=== PATIENT | male | born 1965 | race Caucasian/White ===

== ENCOUNTER 2017-09-24 12:44 | Day surgery (SDC) | payer MEDICARE, MEDICAID ==
[~2017-09-24] VITALS: Ht 160 cm; Wt 57.7 kg
[~2017-09-24 12:44] MED LIST: FERR325T28 PO; GUAI-790 PO; LEVO175T2 PO; OXCA300T4 PO; POTA20LI PO; RABE20TA25 PO; ZOF4T PO
[2017-09-24 13:00] VITALS: BP 127/81
[2017-09-24] MEDS ORDERED: ONDA4TAB9 PO (13:11)
[2017-09-24] MEDS ORDERED: LACT-47 PO (13:11)
[2017-09-24] MEDS ORDERED: IBUP-2284 PO (13:11)
[2017-09-24] MEDS ORDERED: MIDAZolam 1mg/ml 10ml vial ONE (13:48)
[2017-09-24] MEDS ORDERED: LIDOcaine Viscous 15ml cup ONE (13:48)
[2017-09-24] MEDS ORDERED: fentaNYL/PF 50MCG/1 ML 2ML syringe ONE (13:48)
[2017-09-24 14:16] VITALS: BP 99/55
[2017-09-24 14:26] VITALS: BP 94/55
[2017-09-24 14:36] VITALS: BP 94/59
[2017-09-24 14:46] VITALS: BP 89/56
== END 2017-09-24 14:50 | disposition home or self-care (01) ==
LOC: GI LAB 12:44
PROVIDERS: ATTEND Internal Medicine Gastroenterology
DX: K22.2 Esophageal obstruction (principal); Q90.9 Down syndrome, unspecified; Z79.1 Long term (current) use of non-steroidal anti-inflammatories (NSAID); Z79.899 Other long term (current) drug therapy
CPT/HCPCS: 43248; G0500; J2250; J3010; J7030; A4620

== ENCOUNTER 2017-12-10 10:17 | Emergency (ER) | payer MEDICARE, MEDICAID ==
[~2017-12-10] VITALS: Ht 160 cm; Wt 77.0 kg
[~2017-12-10 10:17] MED LIST changes: +GUAI600T45 PO; +IBUP100O19 PO; +IBUP100O20 PO; +LACT-47 PO; +ONDA4TAB6 PO; +ONDA4TAB9 PO; +PEG15DRO2 OP; -ZOF4T PO
[2017-12-10 11:08] LABS: BASOPHILS % (AUTO) 0 % (0-1); EOSINOPHILS # (AUTO) 0.1 X10'3 (0-0.9); EOSINOPHILS % (AUTO) 0.2 % (0-6); HEMATOCRIT 41.7 % (42.0-52.0); HEMOGLOBIN 14.4 g/dl (14.0-17.9); LYMPHOCYTES # (AUTO) 0.7 X10'3 (1.1-4.8); LYMPHOCYTES % (AUTO) 2.8 % (21-51); MEAN CORPUSCULAR HGB CONC 34.4 % (33.0-36.5); MEAN CORPUSCULAR VOLUME 92.9 FL (78-98); MEAN PLATELET VOLUME 7.3 FL (7.4-10.4); MONOCYTES # (AUTO) 0.9 X10'3 (0-0.9); MONOCYTES % (AUTO) 3.6 % (2-12); NEUTROPHILS # (AUTO) 23.2 X10'3 (1.8-7.7); NEUTROPHILS % (AUTO) 93.4 % (42-75); PLATELET COUNT 320 X10'3 (140-440); RED BLOOD COUNT 4.49 X10'6 (4.70-6.10); RED CELL DISTRIBUTION WIDTH 16.2 % (11.5-14.5); WHITE BLOOD COUNT 24.8 X10'3 (4.5-11.0)
[2017-12-10 11:25] LABS: ALANINE AMINOTRANSFERASE 34 U/L (12-78); ALBUMIN 3.1 G/DL (3.4-5.0); ALBUMIN/GLOBULIN RATIO 0.7 (1.1-1.5); ALKALINE PHOSPHATASE 59 IU/L (46-116); ANION GAP 9 (8-16); ASPARTATE AMINO TRANSFERASE 38 U/L (10-37); BILIRUBIN,TOTAL 0.5 MG/DL (0.1-1.0); BLOOD UREA NITROGEN 20 MG/DL (7-18); BUN/CREATININE RATIO 16.1 (5.4-32.0); CALCIUM 8.6 MG/DL (8.5-10.1); CHLORIDE 94 MMOL/L (99-107); CREATININE 1.24 MG/DL (0.60-1.10); GLUCOSE 102 MG/DL (70-104); POTASSIUM 4.4 MMOL/L (3.5-5.1); SODIUM 130 MMOL/L (135-145); TOTAL CARBON DIOXIDE 27.4 MMOL/L (24-32); TOTAL PROTEIN 7.5 G/DL (6.4-8.2); eGFR 61 ML/MIN
[2017-12-10 11:38] LABS: ANISOCYTOSIS 1+; PLATELET ESTIMATE NORMAL; TOTAL CELLS COUNTED 100
[2017-12-10] MEDS: normal saline 1000ML IV soln IVB ONE ×2 (14:15→15:01)
[2017-12-10 14:43] LABS: CLARITY,URINE CLEAR (Clear); COLOR,URINE YELLOW (Yellow); GLUCOSE, URINE NEGATIVE (Neg); KETONES,URINE NEGATIVE (Neg); LEUKOCYTE ESTERASE ,URINE NEGATIVE (Neg); NITRITES, URINE NEGATIVE (Neg); OCCULT BLOOD,URINE NEGATIVE (Neg); PH,URINE 5.5 (4.8-8.0); PROTEIN,URINE TRACE mg/dl (Neg); UROBILINOGEN,URINE 0.2 E.U/dL (0.2-1.0)
[2017-12-10 14:52] LABS: UA COLLECTION TYPE CLN CATCH MIDSTREAM
[2017-12-10 14:56] LABS: LIPASE 72 U/L (73-393)
[2017-12-10 15:01] LABS: BACTERIA,URINE NONE SEEN /HPF (Neg); RBC,URINE NONE SEEN /HPF (0-2); SQUAMOUS EPITHELIAL CELL,UR FEW /LPF (FEW); WBC,URINE NONE SEEN /HPF (0-4)
[2017-12-10] MEDS: levoFLOXACIN-Levaquin 750MG/D5 150 ML IV ONE (16:02)
[2017-12-10] MEDS ORDERED: LEVO750T21 PO (16:03)
[2017-12-10 17:37] VITALS: BP 94/62
== END 2017-12-10 17:41 | disposition home or self-care (01) ==
LOC: ER 10:17
DX: J18.1 Lobar pneumonia, unspecified organism (principal); E86.0 Dehydration; Z79.899 Other long term (current) drug therapy
CPT/HCPCS: 36415; 71045; 80053; 81001; 83605; 83690; 85025; 96361; 96365; 99285; J1956; J7030

== ENCOUNTER 2021-05-16 13:56 | Emergency (ER) | payer MEDICARE, MEDICAID ==
[~2021-05-16] VITALS: Ht 157.5 cm; Wt 59.1 kg
[~2021-05-16 13:56] MED LIST changes: -GUAI-790 PO; -GUAI600T45 PO; -IBUP100O19 PO; -IBUP100O20 PO; -ONDA4TAB9 PO; -POTA20LI PO; +[UNRECOGNIZED DRUG - CODE] PO
[2021-05-16 15:19] LABS: ALANINE AMINOTRANSFERASE 9 U/L (12-78); ALBUMIN 3.3 G/DL (3.4-5.0); ALBUMIN/GLOBULIN RATIO 0.7 (1.1-1.5); ALKALINE PHOSPHATASE 83 IU/L (46-116); ANION GAP 10 (8-16); ASPARTATE AMINO TRANSFERASE 18 U/L (10-37); BILIRUBIN,TOTAL 0.3 MG/DL (0.1-1.0); BLOOD UREA NITROGEN 14 MG/DL (7-18); BUN/CREATININE RATIO 13.1 (5.4-32.0); CALCIUM 8.2 MG/DL (8.5-10.1); CHLORIDE 96 MMOL/L (99-107); CREATININE 1.07 MG/DL (0.60-1.10); GLUCOSE 88 MG/DL (70-104); PARTIAL THROMBOPLASTIN TIME 24 SECONDS (22-32); POTASSIUM 4.2 MMOL/L (3.5-5.1); SODIUM 132 MMOL/L (135-145); TOTAL CARBON DIOXIDE 26.5 MMOL/L (24-32); TOTAL PROTEIN 8.1 G/DL (6.4-8.2); eGFR 71 ML/MIN
[2021-05-16 15:32] LABS: HEMATOCRIT 24.7 % (42.0-52.0); HEMOGLOBIN 7.9 g/dl (14.0-17.9); MEAN CORPUSCULAR HEMOGLOBIN 19.4 PG (27.0-31.0); MEAN CORPUSCULAR VOLUME 60.9 FL (78-98); RED BLOOD COUNT 4.06 X10'6 (4.70-6.10); WHITE BLOOD COUNT 11.2 X10'3 (4.5-11.0)
[2021-05-16 15:33] LABS: MEAN CORPUSCULAR HGB CONC 31.8 g/dL (33.0-36.5); MEAN PLATELET VOLUME 8.5 FL (7.4-10.4); PLATELET COUNT 485 X10'3 (140-440); RED CELL DISTRIBUTION WIDTH 19.7 % (11.5-14.5)
[2021-05-16 16:07] LABS: ANISOCYTOSIS 3+; ELLIPTOCYTES 2+; GIANT PLATELET FEW; HYPOCHROMASIA 2+; LARGE PLATELETS FEW; MICROCYTOSIS 2+; PLATELET ESTIMATE INCREASED; TOTAL CELLS COUNTED 100
[2021-05-16 16:08] LABS: POIKILOCYTOSIS 1+; SCHISTOCYTES FEW; TEAR DROP CELLS FEW
[2021-05-16 23:25] LABS: CLARITY,URINE CLEAR (Clear); COLOR,URINE YELLOW (Yellow); GLUCOSE, URINE NEGATIVE (Neg); KETONES,URINE NEGATIVE (Neg); LEUKOCYTE ESTERASE ,URINE NEGATIVE (Neg); NITRITES, URINE NEGATIVE (Neg); OCCULT BLOOD,URINE NEGATIVE (Neg); PH,URINE 6.5 (4.8-8.0); PROTEIN,URINE NEGATIVE (Neg); UA COLLECTION TYPE CLN CATCH MIDSTREAM; UROBILINOGEN,URINE 0.2 E.U/dL (0.2-1.0)
[2021-05-17 02:09] VITALS: BP 131/68
== END 2021-05-17 02:10 | disposition home or self-care (01) ==
LOC: ER 13:58
DX: D50.9 Iron deficiency anemia, unspecified (principal); D72.829 Elevated white blood cell count, unspecified; R56.9 Unspecified convulsions; Z79.899 Other long term (current) drug therapy
CPT/HCPCS: 36415; 71045; 74176; 80053; 81003; 84145; 85007; 85025; 85610; 85730; 86885; 86900; 86901; 93005; 99285

== ENCOUNTER 2022-09-06 21:44 | Emergency (ER) | payer MEDICARE, MEDICAID ==
[~2022-09-06] VITALS: Ht 142.2 cm; Wt 55.0 kg
[2022-09-06 22:53] LABS: BASOPHILS # (AUTO) 0.1 X10'3 (0-0.2); BASOPHILS % (AUTO) 0.9 % (0-1); EOSINOPHILS # (AUTO) 0.1 X10'3 (0-0.9); EOSINOPHILS % (AUTO) 1.2 % (0-6); HEMATOCRIT 36.9 % (42.0-52.0); HEMOGLOBIN 12.4 g/dl (14.0-17.9); LYMPHOCYTES # (AUTO) 0.8 X10'3 (1.1-4.8); LYMPHOCYTES % (AUTO) 10.3 % (21-51); MEAN CORPUSCULAR HEMOGLOBIN 33.1 PG (27.0-31.0); MEAN CORPUSCULAR HGB CONC 33.7 g/dL (33.0-36.5); MEAN CORPUSCULAR VOLUME 98.3 FL (78-98); MEAN PLATELET VOLUME 6.8 FL (7.4-10.4); MONOCYTES # (AUTO) 0.7 X10'3 (0-0.9); MONOCYTES % (AUTO) 8.7 % (2-12); NEUTROPHILS # (AUTO) 6.1 X10'3 (1.8-7.7); NEUTROPHILS % (AUTO) 78.9 % (42-75); PLATELET COUNT 374 X10'3 (140-440); RED BLOOD COUNT 3.75 X10'6 (4.70-6.10); WHITE BLOOD COUNT 7.7 X10'3 (4.5-11.0)
[2022-09-06 23:06] LABS: ALANINE AMINOTRANSFERASE 23 U/L (12-78); ALBUMIN 2.6 G/DL (3.4-5.0); ALBUMIN/GLOBULIN RATIO 0.8 (1.1-1.5); ALKALINE PHOSPHATASE 60 IU/L (46-116); ANION GAP 1 (8-16); ASPARTATE AMINO TRANSFERASE 19 U/L (10-37); BILIRUBIN,TOTAL 0.2 MG/DL (0.1-1.0); BLOOD UREA NITROGEN 17 MG/DL (7-18); BUN/CREATININE RATIO 22.1 (5.4-32.0); CALCIUM 8.3 MG/DL (8.5-10.1); CHLORIDE 97 MMOL/L (99-107); CREATININE 0.77 MG/DL (0.60-1.10); GLUCOSE 99 MG/DL (70-104); LIPASE 388 U/L (73-393); POTASSIUM 4.3 MMOL/L (3.5-5.1); SODIUM 128 MMOL/L (135-145); TOTAL CARBON DIOXIDE 29.7 MMOL/L (24-32); eGFR > 90 ML/MIN
[2022-09-06] MEDS ORDERED: normal saline 1000ml 1,000 ML IV ONE (23:55)
[2022-09-06] MEDS ORDERED: morphine 4 MG/ML inj SYRINge IV ONE (23:55)
[2022-09-06] MEDS ORDERED: ondansetron/PF 4mg/2ml inj IV ONE (23:55)
[2022-09-07] MEDS ORDERED: iohexol 300mg/ml 100ml inj. ONE (00:02)
[2022-09-07] MEDS ORDERED: BISA10SU62 RC (03:19)
[2022-09-07] MEDS ORDERED: magnesium citrate 296ml oral solution PO ONE (03:20)
[2022-09-07] MEDS: bisacodyl 10mg suppository rectal RC STA ×2 (03:32→03:42)
[2022-09-07] MEDS ORDERED: bisacodyl 10mg suppository rectal RC STA (03:39)
[2022-09-07 03:52] VITALS: BP 111/76
== END 2022-09-07 04:08 | disposition home or self-care (01) ==
LOC: ER 21:45
DX: K59.00 Constipation, unspecified (principal); Z88.0 Allergy status to penicillin
CPT/HCPCS: 36415; 74177; 80053; 83690; 85025; 96361; 96374; 96375; 99285; J2270; J2405; J3490; J7030; Q9967

== ENCOUNTER 2022-12-29 14:03 | Emergency (ER) | payer MEDICARE, MEDICAID ==
[~2022-12-29] VITALS: Ht 157.5 cm; Wt 52.0 kg
[~2022-12-29 14:03] MED LIST changes: +BISA10SU62 RC; +LEVO750T68 PO
[2022-12-29] MEDS ORDERED: normal saline 1000ML IV soln IVB ONE (15:05)
[2022-12-29 15:47] LABS: BASOPHILS # (AUTO) 0.1 X10'3 (0-0.2); BASOPHILS % (AUTO) 0.6 % (0-1); EOSINOPHILS # (AUTO) 0.1 X10'3 (0-0.9); EOSINOPHILS % (AUTO) 0.6 % (0-6); HEMATOCRIT 44.5 % (42.0-52.0); HEMOGLOBIN 14.8 g/dl (14.0-17.9); LYMPHOCYTES # (AUTO) 1.2 X10'3 (1.1-4.8); MEAN CORPUSCULAR HEMOGLOBIN 31.6 PG (27.0-31.0); MEAN CORPUSCULAR HGB CONC 33.3 g/dL (33.0-36.5); MEAN CORPUSCULAR VOLUME 94.8 FL (78-98); MEAN PLATELET VOLUME 7.3 FL (7.4-10.4); MONOCYTES # (AUTO) 0.8 X10'3 (0-0.9); MONOCYTES % (AUTO) 5.3 % (2-12); NEUTROPHILS # (AUTO) 12.5 X10'3 (1.8-7.7); NEUTROPHILS % (AUTO) 85.5 % (42-75); PLATELET COUNT 516 X10'3 (140-440); RED CELL DISTRIBUTION WIDTH 15.8 % (11.5-14.5); WHITE BLOOD COUNT 14.6 X10'3 (4.5-11.0)
[2022-12-29 16:03] LABS: ALANINE AMINOTRANSFERASE 24 U/L (12-78); ALBUMIN/GLOBULIN RATIO 0.7 (1.1-1.5); ALKALINE PHOSPHATASE 79 IU/L (46-116); ANION GAP 3 (8-16); ASPARTATE AMINO TRANSFERASE 23 U/L (10-37); BILIRUBIN,TOTAL 0.3 MG/DL (0.1-1.0); BLOOD UREA NITROGEN 16 MG/DL (7-18); BUN/CREATININE RATIO 13.7 (10.0-20.0); CALCIUM 8.7 MG/DL (8.5-10.1); CHLORIDE 101 MMOL/L (99-107); CREATININE 1.17 MG/DL (0.60-1.10); GLUCOSE 93 MG/DL (70-104); LIPASE 257 U/L (73-393); POTASSIUM 3.9 MMOL/L (3.5-5.1); SODIUM 135 MMOL/L (135-145); TOTAL PROTEIN 7.3 G/DL (6.4-8.2); eGFR 64 ML/MIN
[2022-12-29] MEDS ORDERED: iohexol 300mg/ml 100ml inj. ONE (16:05)
[2022-12-29 17:20] LABS: CLARITY,URINE CLEAR (Clear); COLOR,URINE YELLOW (Yellow); GLUCOSE, URINE NEGATIVE (Neg); KETONES,URINE TRACE mg/dl (Neg); LEUKOCYTE ESTERASE ,URINE NEGATIVE (Neg); NITRITES, URINE NEGATIVE (Neg); OCCULT BLOOD,URINE NEGATIVE (Neg); PROTEIN,URINE NEGATIVE (Neg); UROBILINOGEN,URINE 0.2 E.U/dL (0.2-1.0)
[2022-12-29 17:22] LABS: UA COLLECTION TYPE CLN CATCH MIDSTREAM
[2022-12-29] MEDS ORDERED: ONDA4TAB12 PO ×2 (18:09)
[2022-12-29] MEDS ORDERED: ondansetron 4mg rapidly disintigrating tab PO ONE (18:10)
--- NOTE | 2022-12-29 18:28 | NUR ---
Patient sitting on bedside commode, caregiver with patient.
[2022-12-29 19:16] VITALS: BP 86/62
[2023-01-01] MEDS ORDERED: OMEP20TA43 PO (21:37)
[2023-01-01] MEDS ORDERED: MELA1TAB28 PO (21:39)
[2023-01-01] MEDS ORDERED: POTA20TA34 PO (22:08)
[2023-01-01] MEDS ORDERED: MULT-1085 PO (22:08)
[2023-01-01] MEDS ORDERED: DOCU100C38 PO (22:08)
[2023-01-01] MEDS ORDERED: FERR325T32 PO (22:08)
[2023-01-01] MEDS ORDERED: POLY119P2 PO (22:33)
[2023-01-01] MEDS ORDERED: CALC600T22 PO (22:44)
[2023-01-01] MEDS ORDERED: FURO20TA4 PO (22:44)
== END 2022-12-29 19:20 | disposition home or self-care (01) ==
LOC: ER 14:04
DX: K59.00 Constipation, unspecified (principal); R14.0 Abdominal distension (gaseous); R13.10 Dysphagia, unspecified; Z86.2 Personal history of diseases of the blood and blood-forming organs and certain disorders involving the immune mechanism; Z88.0 Allergy status to penicillin; Z79.899 Other long term (current) drug therapy; Z79.1 Long term (current) use of non-steroidal anti-inflammatories (NSAID)
CPT/HCPCS: 36415; 70491; 71045; 74176; 80053; 81003; 83690; 85025; 96360; 99285; J3490; J7030; Q9967

== ENCOUNTER 2023-05-09 08:42 | Inpatient (IN) | payer MEDICARE, MEDICAID ==
[~2023-05-09] VITALS: Ht 157.5 cm; Wt 43.6 kg
[~2023-05-09 08:42] MED LIST changes: -BISA10SU62 RC; +CALC600T22 PO; +DOCU100C38 PO; -FERR325T28 PO; +FERR325T32 PO; +FURO20TA4 PO; -LACT-47 PO; +MELA1TAB28 PO; +MULT-1085 PO; +OMEP20TA43 PO; -ONDA4TAB6 PO; -PEG15DRO2 OP; +POLY119P2 PO; +POTA20TA34 PO; -RABE20TA25 PO
[2023-05-09] MEDS ORDERED: ondansetron/PF 4mg/2ml inj IV ONE (09:10)
[2023-05-09] MEDS ORDERED: normal saline 1000ML IV soln IVB ONE ×2 (09:10→10:50)
[2023-05-09 09:54] LABS: BASOPHILS # (AUTO) 0.1 X10'3 (0-0.2); BASOPHILS % (AUTO) 0.8 % (0-1); EOSINOPHILS # (AUTO) 0.1 X10'3 (0-0.9); EOSINOPHILS % (AUTO) 1.2 % (0-6); HEMOGLOBIN 12.7 g/dl (14.0-17.9); LYMPHOCYTES # (AUTO) 1.3 X10'3 (1.1-4.8); LYMPHOCYTES % (AUTO) 14.3 % (21-51); MEAN CORPUSCULAR HEMOGLOBIN 32.5 PG (27.0-31.0); MEAN CORPUSCULAR HGB CONC 33.5 g/dL (33.0-36.5); MEAN CORPUSCULAR VOLUME 97.1 FL (78-98); MONOCYTES # (AUTO) 0.7 X10'3 (0-0.9); MONOCYTES % (AUTO) 7.5 % (2-12); NEUTROPHILS # (AUTO) 7.1 X10'3 (1.8-7.7); NEUTROPHILS % (AUTO) 76.2 % (42-75); PLATELET COUNT 475 X10'3 (140-440); RED BLOOD COUNT 3.91 X10'6 (4.70-6.10); RED CELL DISTRIBUTION WIDTH 14.2 % (11.5-14.5); WHITE BLOOD COUNT 9.4 X10'3 (4.5-11.0)
[2023-05-09 10:04] LABS: ALANINE AMINOTRANSFERASE 31 U/L (12-78); ALBUMIN 2.9 G/DL (3.4-5.0); ALBUMIN/GLOBULIN RATIO 0.7 (1.1-1.5); ALKALINE PHOSPHATASE 78 IU/L (46-116); ANION GAP 5 (8-16); ASPARTATE AMINO TRANSFERASE 24 U/L (10-37); BILIRUBIN,TOTAL 0.3 MG/DL (0.1-1.0); BLOOD UREA NITROGEN 33 MG/DL (7-18); CALCIUM 9.2 MG/DL (8.5-10.1); CHLORIDE 101 MMOL/L (99-107); GLUCOSE 86 MG/DL (70-104); LIPASE 276 U/L (73-393); POTASSIUM 3.6 MMOL/L (3.5-5.1); SODIUM 136 MMOL/L (135-145); TOTAL CARBON DIOXIDE 30.1 MMOL/L (24-32); TOTAL PROTEIN 7.2 G/DL (6.4-8.2); eCRCL 44 ML/MIN; eGFR 68 ML/MIN
[2023-05-09] MEDS ORDERED: LORazepam 2 mg/ml vial IV ONE (10:50)
[2023-05-09] MEDS ORDERED: bisacodyl 10mg suppository rectal RC ONE (10:50)
[2023-05-09] MEDS ORDERED: iohexol 300mg/ml 100ml inj. ONE (11:21)
--- NOTE | 2023-05-09 12:32 | NUR ---
DR. MITCHELL TRIED TO DIGITAL DISIMPACT PT. UNSUCCESSFUL. HE PLACED SUPPOSITORY. CLEAN PT SOLIDED LINENS AND PRISON BRING FRESH CLOTHING. GREEN BUILDING MATERIALS DISTRIBUTOR AT BEDSIDE.
--- NOTE | 2023-05-09 12:55 | NUR ---
pt solided his linens. changed bedding and placed in a pull up. Firewall Security Engineer at bedside. pt is not normally incontinent per pediatric dermatologist.
--- NOTE | 2023-05-09 13:33 | NUR ---
Dr Melgar would like to hold off on EGD at this time, he will cm to ED to access pt and will then decide when to take pt up for procedure.
[2023-05-09] MEDS ORDERED: mag hydrox/Alum hydrox/simeth 30ml oral suspension PO PRN (13:45)
[2023-05-09] MEDS ORDERED: magnesium hydroxide 30ml (MOM) UD suspension PO PRN ×2 (13:45→16:40)
[2023-05-09] MEDS ORDERED: magnesium 2GM in 50ml NS 50 ML IV PRN (13:45)
[2023-05-09] MEDS ORDERED: acetaminophen 325mg tablet PO PRN ×2 (13:45→16:40)
[2023-05-09] MEDS ORDERED: potassium Cl 20 mEq SR tablet PO PRN ×2 (13:45)
[2023-05-09] MEDS ORDERED: potassium Cl 40MEQ/1/2NS 520ml 520 ML IV PRN (13:45)
[2023-05-09] MEDS ORDERED: ondansetron/PF 4mg/2ml inj IV PRN (13:45)
[2023-05-09] MEDS ORDERED: magnesium 4gm in 100ml NS 100 ML IV PRN (13:45)
--- NOTE | 2023-05-09 13:54 | NUR ---
PT PASSED LARGE BOWL MOVEMENT. FORMED, SOFT. SOILED BREIF CHANGED.
[2023-05-09] MEDS: lactulose 20gm/30ml cup PO SCH ×2 (14:16→20:00)
[2023-05-09] MEDS: azithromycin/NS 500mg/250ml 250 ML IV SCH (14:52)
[2023-05-09] MEDS ORDERED: BISA-95 PO (15:02)
[2023-05-09] MEDS ORDERED: [UNRECOGNIZED DRUG - CODE] PO (15:06)
[2023-05-09] MEDS ORDERED: IBUP-1985 PO (15:09)
[2023-05-09] MEDS ORDERED: ACET325T57 PO (15:10)
[2023-05-09] MEDS ORDERED: MAGN400O6 PO (15:10)
[2023-05-09] MEDS ORDERED: MELA5CAP PO (15:11)
[2023-05-09] MEDS ORDERED: bisacodyl 5mg tablet.DR PO PRN (16:40)
[2023-05-09] MEDS: CefTRIAXone/D5W-Rocephin 1gm 50 ML IV SCH (16:56)
[2023-05-09] MEDS: lansoprazole 15mg solutab PO SCH (17:48)
[2023-05-09 19:30] VITALS: BP 111/62; PULSE 77; RESP 16; TEMP 97.8; O2SAT 95
[2023-05-09] MEDS: polyethylene glycol 3350 17gm powd pack PO SCH (20:00)
[2023-05-09] MEDS: oxcarbazepine 150mg tablet PO SCH (20:00)
[2023-05-09] MEDS: K and/or MAG REPLACEMENT MC SCH (20:00)
[2023-05-09] MEDS ORDERED: enoxaparin 40mg/0.4ml syringe SQ SCH (20:00)
[2023-05-09] MEDS: Melatonin 3mg tablet PO SCH (20:26)
[2023-05-09] MEDS: ferrous sulfate 325mg tablet PO SCH (20:26)
[2023-05-09] MEDS: normal saline 1000ml 1,000 ML IV SCH (21:45)
[2023-05-09 22:00] VITALS: BP 102/69; PULSE 77; RESP 16; TEMP 99; O2SAT 97
[2023-05-10] VITALS (18 sets, daily range): BP systolic 78–117; BP diastolic 42–73; PULSE 65–99; RESP 12–18; TEMP 97.5–98.1; O2SAT 68–100
[2023-05-10] MEDS: lactulose 20gm/30ml cup PO SCH ×4 (01:58→21:10)
--- NOTE | 2023-05-10 02:23 | NUR ---
Patient in room [facility]TH[facility] 4009. I have received report from CISCO Moses and had the opportunity to ask questions and assume patient care.
--- NOTE | 2023-05-10 06:42 | NUR ---
Problems reprioritized. Patient report given, questions answered & plan of care reviewed with CISCO Saldana.
--- NOTE | 2023-05-10 06:48 | NUR ---
Patient in room [facility]TH[facility] 4009. I have received report from Radha PECK and had the opportunity to ask questions and assume patient care.
[2023-05-10 06:53] LABS: BASOPHILS # (AUTO) 0.1 X10'3 (0-0.2); BASOPHILS % (AUTO) 1.2 % (0-1); EOSINOPHILS # (AUTO) 0.2 X10'3 (0-0.9); EOSINOPHILS % (AUTO) 2.3 % (0-6); HEMATOCRIT 37.7 % (42.0-52.0); HEMOGLOBIN 12.2 g/dl (14.0-17.9); LYMPHOCYTES # (AUTO) 0.8 X10'3 (1.1-4.8); LYMPHOCYTES % (AUTO) 9.6 % (21-51); MEAN CORPUSCULAR HEMOGLOBIN 31.6 PG (27.0-31.0); MEAN CORPUSCULAR HGB CONC 32.3 g/dL (33.0-36.5); MEAN CORPUSCULAR VOLUME 97.7 FL (78-98); MEAN PLATELET VOLUME 7.1 FL (7.4-10.4); MONOCYTES # (AUTO) 0.6 X10'3 (0-0.9); MONOCYTES % (AUTO) 8.1 % (2-12); NEUTROPHILS # (AUTO) 6.1 X10'3 (1.8-7.7); NEUTROPHILS % (AUTO) 78.8 % (42-75); PLATELET COUNT 475 X10'3 (140-440); RED BLOOD COUNT 3.86 X10'6 (4.70-6.10); WHITE BLOOD COUNT 7.8 X10'3 (4.5-11.0)
[2023-05-10] MEDS: levoTHYROXINE 175mcg tablet PO SCH (07:00)
[2023-05-10 07:18] LABS: ALANINE AMINOTRANSFERASE 30 U/L (12-78); ALBUMIN 2.3 G/DL (3.4-5.0); ALBUMIN/GLOBULIN RATIO 0.6 (1.1-1.5); ALKALINE PHOSPHATASE 68 IU/L (46-116); ANION GAP 5 (8-16); ASPARTATE AMINO TRANSFERASE 20 U/L (10-37); BILIRUBIN,TOTAL 0.2 MG/DL (0.1-1.0); BLOOD UREA NITROGEN 18 MG/DL (7-18); BUN/CREATININE RATIO 18.9 (10.0-20.0); CALCIUM 8.3 MG/DL (8.5-10.1); CHLORIDE 106 MMOL/L (99-107); CREATININE 0.95 MG/DL (0.60-1.10); GLUCOSE 72 MG/DL (70-104); MAGNESIUM 2.2 MG/DL (1.5-2.4); POTASSIUM 3.5 MMOL/L (3.5-5.1); SODIUM 140 MMOL/L (135-145); TOTAL CARBON DIOXIDE 28.7 MMOL/L (24-32); TOTAL PROTEIN 6.2 G/DL (6.4-8.2); eCRCL 51 ML/MIN; eGFR 81 ML/MIN
[2023-05-10] MEDS: ferrous sulfate 325mg tablet PO SCH ×3 (08:00→21:00)
[2023-05-10] MEDS: polyethylene glycol 3350 17gm powd pack PO SCH ×2 (08:00→21:09)
[2023-05-10] MEDS: oxcarbazepine 150mg tablet PO SCH ×2 (08:00→20:00)
[2023-05-10] MEDS: calcium carbonate 500mg chew tablet PO SCH (08:00)
[2023-05-10] MEDS: lansoprazole 15mg solutab PO SCH (08:00)
[2023-05-10] MEDS: K and/or MAG REPLACEMENT MC SCH ×2 (08:00→19:41)
[2023-05-10] MEDS: multivitamins, therapeutics tablet PO SCH (08:00)
[2023-05-10] MEDS: docusate sod 100mg capsule PO SCH (08:00)
[2023-05-10] MEDS: CefTRIAXone/D5W-Rocephin 1gm 50 ML IV SCH (08:12)
[2023-05-10] MEDS: azithromycin/NS 500mg/250ml 250 ML IV SCH (09:56)
[2023-05-10] MEDS ORDERED: MIDAZolam 1 MG/ML 5ML VIAL ONE (11:04)
[2023-05-10] MEDS ORDERED: fentaNYL/PF 50MCG/1 ML 2ML syringe ONE (11:04)
[2023-05-10] MEDS ORDERED: LIDOcaine Viscous 15ml cup ONE (11:05)
--- NOTE | 2023-05-10 11:52 | NUR ---
Pt presents with a low BMI of 17.6 this admit. Non scaled wt this admit of 43.64kg (96 pounds) though pending scaled wt thus unable to identify if wt loss has occurred at this time. Also pending RN malnutrition screen. Per EMR pt is non verbal and developmentally delayed so not appropriate for interview. Per ED note pt appears well developed and well nourished. Per RN physical assessment pt does not present with edema and has mild weakness which is anticipated given hx. Pt does not meet a minimum of two malnutrition criteria at this time. Will continue to monitor for signs and symptoms of malnutrition. Addendum: 05/10/23 at [address] Amended: Links added.
[2023-05-10] MEDS ORDERED: mineral oil 133ml enema RC STA (12:19)
--- NOTE | 2023-05-10 14:51 | NUR ---
PRESSURE ULCER EDUCATION: DEFINITION: A pressure ulcer is an area of skin that breaks down when you stay in one position too long. The constant pressure against the skin reduces the blood flow to that area and the affected tissue dies. CAUSES: "Being bedridden or in a wheelchair "Fragile skin "Having a chronic condition, such as diabetes or vascular disease "Inability to move certain parts of your body without assistance "Older age "Incontinence of urine or stool SYMPTOMS: "A reddened area that DOES NOT turn white when pressed on - this can be the beginning of a pressure ulcer "A blister, deep sore or a crater - these can be advanced pressure ulcers FIRST AID: "Relieve the pressure on this area "Keep the area clean and dry "Call your primary doctor if you see any of the above symptoms "DO NOT massage the area "DO NOT use a donut shaped or ring shaped pillow- these actually interfere with the blood flow and cause complications PREVENTION: "Check for pressure ulcers everyday "Change position at least every two hours to relieve pressure "Use items that help relieve pressure- pillows, sheepskin, foam padding, and powders. "Keep skin clean and dry "Eat healthy well balanced meals "Exercise daily IF YOU SEE ANY OF THESE SYMPTOMS WHILE IN THE HOSPITAL - TELL YOUR NURSE IMMEDIATELY. IF YOU SEE ANY OF THESE SYMPTOMS WHILE AT HOME OR HAVE ANY QUESTIONS OR CONCERNS ABOUT PRESSURE ULCERS - CALL YOUR PRIMARY DOCTOR IMMEDIATELY. Addendum: 05/10/23 at 1451 by Renetta Rivera LVN Amended: Links added.
[2023-05-10] MEDS: normal saline 1000ml 1,000 ML IV SCH (17:45)
--- NOTE | 2023-05-10 18:22 | NUR ---
Problems reprioritized. Patient report given, questions answered & plan of care reviewed with CASH PECK.
[2023-05-10] MEDS: metoclopramide 5 mg/ml inj IV SCH (21:08)
[2023-05-10] MEDS: bisacodyl 10mg suppository rectal RC SCH (21:09)
[2023-05-10] MEDS: Melatonin 3mg tablet PO SCH (21:09)
--- NOTE | 2023-05-10 22:00 | NUR ---
patient spit out medications tonomi, RN encouraged patient to swallow and tried mixing crushed pills with different nectar thick liquids. IV medications only able to be given. supp given per orders, patient had x4 BMs tonight. 2 of them were large bowel movements. patient abd slightly less distended. patient passing flatus
[2023-05-10] MEDS ORDERED: LORazepam 2 mg/ml vial IM ONE (23:30)
[2023-05-11 00:15] VITALS: BP 111/58
[2023-05-11] MEDS ORDERED: LORazepam 2 mg/ml vial IV ONE (00:15)
[2023-05-11] MEDS: lactulose 20gm/30ml cup PO SCH ×3 (02:00→14:00)
[2023-05-11] MEDS: metoclopramide 5 mg/ml inj IV SCH ×2 (02:25→09:28)
[2023-05-11 06:00] VITALS: BP 89/52; PULSE 66; RESP 16; TEMP 98.1; O2SAT 93
--- NOTE | 2023-05-11 06:16 | NUR ---
Problems reprioritized. Patient report given, questions answered & plan of care reviewed with Yoli PECK.
--- NOTE | 2023-05-11 06:28 | NUR ---
Patient in room [facility]TH[facility] 4009. I have received report from Aurelia PECK and had the opportunity to ask questions and assume patient care.
[2023-05-11 07:07] LABS: BASOPHILS # (AUTO) 0.1 X10'3 (0-0.2); BASOPHILS % (AUTO) 1.1 % (0-1); EOSINOPHILS # (AUTO) 0.3 X10'3 (0-0.9); EOSINOPHILS % (AUTO) 3.1 % (0-6); HEMATOCRIT 38.6 % (42.0-52.0); HEMOGLOBIN 12.8 g/dl (14.0-17.9); LYMPHOCYTES % (AUTO) 11.5 % (21-51); MEAN CORPUSCULAR HEMOGLOBIN 32.5 PG (27.0-31.0); MEAN CORPUSCULAR HGB CONC 33.2 g/dL (33.0-36.5); MEAN CORPUSCULAR VOLUME 98.1 FL (78-98); MONOCYTES # (AUTO) 0.8 X10'3 (0-0.9); MONOCYTES % (AUTO) 9.5 % (2-12); NEUTROPHILS # (AUTO) 6.5 X10'3 (1.8-7.7); NEUTROPHILS % (AUTO) 74.8 % (42-75); PLATELET COUNT 451 X10'3 (140-440); RED BLOOD COUNT 3.94 X10'6 (4.70-6.10); RED CELL DISTRIBUTION WIDTH 14.2 % (11.5-14.5); WHITE BLOOD COUNT 8.6 X10'3 (4.5-11.0)
[2023-05-11 07:30] LABS: ALANINE AMINOTRANSFERASE 30 U/L (12-78); ALBUMIN 2.6 G/DL (3.4-5.0); ALBUMIN/GLOBULIN RATIO 0.6 (1.1-1.5); ALKALINE PHOSPHATASE 77 IU/L (46-116); ANION GAP 7 (8-16); ASPARTATE AMINO TRANSFERASE 28 U/L (10-37); BILIRUBIN,TOTAL 0.3 MG/DL (0.1-1.0); BLOOD UREA NITROGEN 15 MG/DL (7-18); BUN/CREATININE RATIO 15.5 (10.0-20.0); CALCIUM 8.6 MG/DL (8.5-10.1); CHLORIDE 105 MMOL/L (99-107); CREATININE 0.97 MG/DL (0.60-1.10); GLUCOSE 88 MG/DL (70-104); MAGNESIUM 2.3 MG/DL (1.5-2.4); POTASSIUM 3.3 MMOL/L (3.5-5.1); SODIUM 138 MMOL/L (135-145); TOTAL CARBON DIOXIDE 26.4 MMOL/L (24-32); TOTAL PROTEIN 6.7 G/DL (6.4-8.2); eCRCL 50 ML/MIN; eGFR 79 ML/MIN
[2023-05-11 08:00] VITALS: RESP 16; O2SAT 93
[2023-05-11] MEDS: docusate sod 100mg capsule PO SCH (08:00)
[2023-05-11] MEDS: K and/or MAG REPLACEMENT MC SCH ×2 (08:00→20:00)
[2023-05-11] MEDS ORDERED: mineral oil 133ml enema RC ONE (08:25)
--- NOTE | 2023-05-11 08:30 | NUR ---
An attempt was made to give the patient his morning medications. This was unsuccessful as he spit them all out. Provider was notified
[2023-05-11] MEDS: levoTHYROXINE 175mcg tablet PO SCH (09:27)
[2023-05-11] MEDS: multivitamins, therapeutics tablet PO SCH (09:27)
[2023-05-11] MEDS: calcium carbonate 500mg chew tablet PO SCH (09:27)
[2023-05-11] MEDS: ferrous sulfate 325mg tablet PO SCH ×3 (09:27→20:24)
[2023-05-11] MEDS: lansoprazole 15mg solutab PO SCH (09:27)
[2023-05-11] MEDS: polyethylene glycol 3350 17gm powd pack PO SCH ×2 (09:28→20:24)
[2023-05-11] MEDS: CefTRIAXone/D5W-Rocephin 1gm 50 ML IV SCH (09:43)
[2023-05-11] MEDS: oxcarbazepine 150mg tablet PO SCH ×2 (09:46→20:24)
[2023-05-11 10:00] VITALS: BP 104/56; PULSE 65; RESP 15; TEMP 97.3; O2SAT 99
[2023-05-11] MEDS: azithromycin/NS 500mg/250ml 250 ML IV SCH (10:51)
[2023-05-11] MEDS: normal saline 1000ml 1,000 ML IV SCH ×2 (13:45→22:10)
[2023-05-11] MEDS: bisacodyl 10mg suppository rectal RC SCH (16:19)
[2023-05-11 18:00] VITALS: BP 109/60; PULSE 75; RESP 16; TEMP 97.8; O2SAT 99
[2023-05-11] MEDS ORDERED: [UNRECOGNIZED DRUG - OTHER] PO ONE (19:35)
[2023-05-11] MEDS: [UNRECOGNIZED DRUG - OTHER] PO SCH (20:18)
[2023-05-11] MEDS: Melatonin 3mg tablet PO SCH (20:23)
[2023-05-11 22:00] VITALS: BP 122/62; PULSE 65; RESP 16; TEMP 97.8; O2SAT 99
[2023-05-12 05:00] VITALS: BP 114/75; PULSE 70; RESP 15; TEMP 97.6; O2SAT 98
--- NOTE | 2023-05-12 06:37 | NUR ---
Problems reprioritized. Patient report given, questions answered & plan of care reviewed with Kassandra QUIÑONEZ.
[2023-05-12] MEDS: CefTRIAXone/D5W-Rocephin 1gm 50 ML IV SCH (07:41)
--- NOTE | 2023-05-12 07:59 | NUR ---
F/u 05/12: Noted pt placed on nectar thick diet 05/11 w/ prior clear liquids cancelled in EMR. ARNOLD d/w RN for clarification as this would be solid foods and nectar thick liquids; per RN pt can't tolerate solids likely error. Dietary aware will keep sending nectar thick/clear liquids until diet clarification. Noted pt s/p EGD w/ esophageal dilatation w/ pureed attempt recommended in GI MD note 05/10 yet remains on [address]. RD notified DO recommends SENIOR SALES ASSOCIATE BSS. Addendum: 05/12/23 at [address] Amended: Links added.
[2023-05-12 08:00] VITALS: RESP 17; O2SAT 96
[2023-05-12] MEDS: bisacodyl 10mg suppository rectal RC SCH (08:00)
[2023-05-12] MEDS: K and/or MAG REPLACEMENT MC SCH ×2 (08:00→20:00)
[2023-05-12] MEDS: docusate sod 100mg capsule PO SCH (08:00)
[2023-05-12 08:13] LABS: ALANINE AMINOTRANSFERASE 27 U/L (12-78); ALBUMIN 2.5 G/DL (3.4-5.0); ALBUMIN/GLOBULIN RATIO 0.6 (1.1-1.5); ALKALINE PHOSPHATASE 74 IU/L (46-116); ANION GAP 4 (8-16); ASPARTATE AMINO TRANSFERASE 26 U/L (10-37); BILIRUBIN,TOTAL 0.2 MG/DL (0.1-1.0); BLOOD UREA NITROGEN 7 MG/DL (7-18); BUN/CREATININE RATIO 7.5 (10.0-20.0); CALCIUM 8.5 MG/DL (8.5-10.1); CHLORIDE 105 MMOL/L (99-107); CREATININE 0.93 MG/DL (0.60-1.10); GLUCOSE 88 MG/DL (70-104); MAGNESIUM 2.1 MG/DL (1.5-2.4); POTASSIUM 3.7 MMOL/L (3.5-5.1); SODIUM 135 MMOL/L (135-145); TOTAL CARBON DIOXIDE 26.3 MMOL/L (24-32); TOTAL PROTEIN 6.6 G/DL (6.4-8.2); eCRCL 52 ML/MIN; eGFR 83 ML/MIN
[2023-05-12 08:14] LABS: BASOPHILS # (AUTO) 0.1 X10'3 (0-0.2); BASOPHILS % (AUTO) 0.7 % (0-1); EOSINOPHILS # (AUTO) 0.3 X10'3 (0-0.9); EOSINOPHILS % (AUTO) 3.8 % (0-6); HEMATOCRIT 36.7 % (42.0-52.0); HEMOGLOBIN 12.2 g/dl (14.0-17.9); LYMPHOCYTES # (AUTO) 0.9 X10'3 (1.1-4.8); LYMPHOCYTES % (AUTO) 11.5 % (21-51); MEAN CORPUSCULAR HEMOGLOBIN 32.5 PG (27.0-31.0); MEAN CORPUSCULAR HGB CONC 33.1 g/dL (33.0-36.5); MEAN CORPUSCULAR VOLUME 98.2 FL (78-98); MEAN PLATELET VOLUME 7.2 FL (7.4-10.4); MONOCYTES # (AUTO) 0.8 X10'3 (0-0.9); MONOCYTES % (AUTO) 11.1 % (2-12); NEUTROPHILS # (AUTO) 5.6 X10'3 (1.8-7.7); NEUTROPHILS % (AUTO) 72.9 % (42-75); PLATELET COUNT 469 X10'3 (140-440); RED BLOOD COUNT 3.74 X10'6 (4.70-6.10); RED CELL DISTRIBUTION WIDTH 13.9 % (11.5-14.5); WHITE BLOOD COUNT 7.7 X10'3 (4.5-11.0)
[2023-05-12] MEDS ORDERED: mineral oil 133ml enema RC ONE (09:00)
[2023-05-12] MEDS: multivitamins, therapeutics tablet PO SCH (09:47)
[2023-05-12] MEDS: lansoprazole 15mg solutab PO SCH (09:47)
[2023-05-12] MEDS: polyethylene glycol 3350 17gm powd pack PO SCH ×2 (09:47→21:11)
[2023-05-12] MEDS: ferrous sulfate 325mg tablet PO SCH ×3 (09:47→21:12)
[2023-05-12] MEDS: calcium carbonate 500mg chew tablet PO SCH (09:47)
[2023-05-12] MEDS: [UNRECOGNIZED DRUG - OTHER] PO SCH ×2 (09:47→21:12)
[2023-05-12] MEDS: levoTHYROXINE 175mcg tablet PO SCH (09:47)
[2023-05-12] MEDS: oxcarbazepine 150mg tablet PO SCH ×2 (09:48→21:12)
[2023-05-12] MEDS: azithromycin 250mg tablet PO SCH (09:56)
[2023-05-12 10:00] VITALS: BP 119/67; PULSE 80; RESP 18; TEMP 97.6; O2SAT 98
[2023-05-12] MEDS ORDERED: metoclopramide 5 mg/ml inj IV SCH (14:00)
[2023-05-12] MEDS ORDERED: metoclopramide 5 mg/ml inj IM PRN (17:20)
[2023-05-12 18:00] VITALS: BP 91/62; PULSE 80; RESP 11; TEMP 98.1; O2SAT 100
[2023-05-12 20:00] VITALS: RESP 16; O2SAT 98
[2023-05-12] MEDS: Melatonin 3mg tablet PO SCH (21:12)
[2023-05-12 22:00] VITALS: BP 99/62; PULSE 75; RESP 16; TEMP 98.6; O2SAT 98
[2023-05-13] MEDS: normal saline 1000ml 1,000 ML IV SCH (05:45)
[2023-05-13 06:00] VITALS: BP 98/52; PULSE 60; RESP 15; TEMP 96.6; O2SAT 99
--- NOTE | 2023-05-13 06:15 | NUR ---
Patient in room [facility]TH[facility] 4009. I have received report from Sarah PECK and had the opportunity to ask questions and assume patient care.
--- NOTE | 2023-05-13 06:18 | NUR ---
Problems reprioritized. Patient report given, questions answered & plan of care reviewed with OLAMIDE VERA.
[2023-05-13 06:43] LABS: ALANINE AMINOTRANSFERASE 26 U/L (12-78); ALBUMIN 2.5 G/DL (3.4-5.0); ALBUMIN/GLOBULIN RATIO 0.7 (1.1-1.5); ALKALINE PHOSPHATASE 72 IU/L (46-116); ANION GAP 4 (8-16); ASPARTATE AMINO TRANSFERASE 22 U/L (10-37); BILIRUBIN,TOTAL 0.2 MG/DL (0.1-1.0); BLOOD UREA NITROGEN 4 MG/DL (7-18); BUN/CREATININE RATIO 4.2 (10.0-20.0); CALCIUM 8.4 MG/DL (8.5-10.1); CHLORIDE 101 MMOL/L (99-107); CREATININE 0.96 MG/DL (0.60-1.10); GLUCOSE 83 MG/DL (70-104); MAGNESIUM 1.9 MG/DL (1.5-2.4); POTASSIUM 3.6 MMOL/L (3.5-5.1); SODIUM 134 MMOL/L (135-145); TOTAL CARBON DIOXIDE 29.3 MMOL/L (24-32); TOTAL PROTEIN 6.3 G/DL (6.4-8.2); eCRCL 51 ML/MIN; eGFR 80 ML/MIN
[2023-05-13 06:48] LABS: BASOPHILS # (AUTO) 0.1 X10'3 (0-0.2); BASOPHILS % (AUTO) 0.9 % (0-1); EOSINOPHILS # (AUTO) 0.3 X10'3 (0-0.9); EOSINOPHILS % (AUTO) 3.3 % (0-6); HEMATOCRIT 37.1 % (42.0-52.0); HEMOGLOBIN 12.3 g/dl (14.0-17.9); LYMPHOCYTES # (AUTO) 0.9 X10'3 (1.1-4.8); LYMPHOCYTES % (AUTO) 10.8 % (21-51); MEAN CORPUSCULAR HGB CONC 33.3 g/dL (33.0-36.5); MEAN CORPUSCULAR VOLUME 96.1 FL (78-98); MEAN PLATELET VOLUME 7.2 FL (7.4-10.4); MONOCYTES # (AUTO) 0.8 X10'3 (0-0.9); MONOCYTES % (AUTO) 9.2 % (2-12); NEUTROPHILS # (AUTO) 6.4 X10'3 (1.8-7.7); NEUTROPHILS % (AUTO) 75.8 % (42-75); PLATELET COUNT 469 X10'3 (140-440); RED BLOOD COUNT 3.86 X10'6 (4.70-6.10); RED CELL DISTRIBUTION WIDTH 13.8 % (11.5-14.5); WHITE BLOOD COUNT 8.5 X10'3 (4.5-11.0)
[2023-05-13 08:00] VITALS: RESP 15; O2SAT 99
[2023-05-13] MEDS: CefTRIAXone/D5W-Rocephin 1gm 50 ML IV SCH (08:00)
[2023-05-13] MEDS: K and/or MAG REPLACEMENT MC SCH ×2 (08:00→19:28)
[2023-05-13] MEDS: docusate sod 100mg capsule PO SCH (08:00)
[2023-05-13] MEDS: bisacodyl 10mg suppository rectal RC SCH ×3 (08:00→19:24)
[2023-05-13] MEDS: lansoprazole 15mg solutab PO SCH (08:29)
[2023-05-13] MEDS: azithromycin 250mg tablet PO SCH (08:29)
[2023-05-13] MEDS: ferrous sulfate 325mg tablet PO SCH ×3 (08:29→19:07)
[2023-05-13] MEDS: levoTHYROXINE 175mcg tablet PO SCH (08:29)
[2023-05-13] MEDS: polyethylene glycol 3350 17gm powd pack PO SCH ×2 (08:29→19:09)
[2023-05-13] MEDS: oxcarbazepine 150mg tablet PO SCH ×2 (08:29→19:07)
[2023-05-13] MEDS: calcium carbonate 500mg chew tablet PO SCH (08:29)
[2023-05-13] MEDS: multivitamins, therapeutics tablet PO SCH (08:29)
[2023-05-13] MEDS: [UNRECOGNIZED DRUG - OTHER] PO SCH ×2 (08:30→19:10)
[2023-05-13 10:00] VITALS: BP 85/54; PULSE 70; RESP 13; TEMP 98.5; O2SAT 100
--- NOTE | 2023-05-13 10:21 | NUR ---
PAGER ID: [phone] MESSAGE: [id number] pt caregiver is here, would like to talk to you. Pls advise? MARCO Chase [phone]
[2023-05-13] MEDS: metoclopramide 5 mg/ml inj IM SCH ×3 (11:45→19:19)
--- NOTE | 2023-05-13 13:14 | NUR ---
I have reviewed and agree with interventions, assessments, and documentation by Rena Salgado LVN.
[2023-05-13] MEDS: lactulose 20gm/30ml cup PO SCH ×2 (14:36→19:09)
[2023-05-13 18:00] VITALS: BP 105/75; PULSE 83; RESP 18; TEMP 98.2; O2SAT 100
--- NOTE | 2023-05-13 18:20 | NUR ---
Problems reprioritized. Patient report given, questions answered & plan of care reviewed with Sarah PECK.
[2023-05-13 20:00] VITALS: RESP 18; O2SAT 100
[2023-05-13 22:00] VITALS: BP 96/48; PULSE 76; RESP 16; TEMP 97.1; O2SAT 98
[2023-05-13] MEDS: Melatonin 3mg tablet PO SCH (23:15)
[2023-05-14] MEDS: normal saline 1000ml 1,000 ML IV SCH (01:45)
[2023-05-14] MEDS: lactulose 20gm/30ml cup PO SCH ×3 (03:42→14:00)
[2023-05-14] MEDS: metoclopramide 5 mg/ml inj IM SCH ×3 (03:42→14:00)
[2023-05-14 06:00] VITALS: BP 98/65; PULSE 81; RESP 16; TEMP 97.4; O2SAT 95
--- NOTE | 2023-05-14 06:28 | NUR ---
Problems reprioritized. Patient report given, questions answered & plan of care reviewed with OLAMIDE VERA.
[2023-05-14 06:30] LABS: BASOPHILS % (AUTO) 0.5 % (0-1); EOSINOPHILS # (AUTO) 0.2 X10'3 (0-0.9); HEMATOCRIT 40.5 % (42.0-52.0); HEMOGLOBIN 13.3 g/dl (14.0-17.9); LYMPHOCYTES # (AUTO) 0.8 X10'3 (1.1-4.8); LYMPHOCYTES % (AUTO) 8.4 % (21-51); MEAN CORPUSCULAR HEMOGLOBIN 31.7 PG (27.0-31.0); MEAN CORPUSCULAR HGB CONC 32.9 g/dL (33.0-36.5); MEAN CORPUSCULAR VOLUME 96.2 FL (78-98); MEAN PLATELET VOLUME 6.9 FL (7.4-10.4); MONOCYTES # (AUTO) 0.6 X10'3 (0-0.9); NEUTROPHILS # (AUTO) 7.5 X10'3 (1.8-7.7); NEUTROPHILS % (AUTO) 82.1 % (42-75); PLATELET COUNT 485 X10'3 (140-440); RED BLOOD COUNT 4.21 X10'6 (4.70-6.10); RED CELL DISTRIBUTION WIDTH 13.9 % (11.5-14.5); WHITE BLOOD COUNT 9.1 X10'3 (4.5-11.0)
--- NOTE | 2023-05-14 06:30 | NUR ---
Patient in room [facility]TH[facility] 4009. I have received report from Avani PECK and had the opportunity to ask questions and assume patient care.
[2023-05-14 06:49] LABS: ALANINE AMINOTRANSFERASE 31 U/L (12-78); ALBUMIN 2.8 G/DL (3.4-5.0); ALBUMIN/GLOBULIN RATIO 0.7 (1.1-1.5); ALKALINE PHOSPHATASE 83 IU/L (46-116); ANION GAP 6 (8-16); ASPARTATE AMINO TRANSFERASE 25 U/L (10-37); BILIRUBIN,TOTAL 0.2 MG/DL (0.1-1.0); BLOOD UREA NITROGEN 8 MG/DL (7-18); BUN/CREATININE RATIO 7.9 (10.0-20.0); CALCIUM 8.5 MG/DL (8.5-10.1); CHLORIDE 100 MMOL/L (99-107); CREATININE 1.01 MG/DL (0.60-1.10); GLUCOSE 83 MG/DL (70-104); MAGNESIUM 1.9 MG/DL (1.5-2.4); POTASSIUM 3.5 MMOL/L (3.5-5.1); SODIUM 135 MMOL/L (135-145); TOTAL CARBON DIOXIDE 29.4 MMOL/L (24-32); eCRCL 48 ML/MIN; eGFR 75 ML/MIN
[2023-05-14 08:00] VITALS: RESP 16; O2SAT 95
[2023-05-14] MEDS: K and/or MAG REPLACEMENT MC SCH (08:00)
[2023-05-14] MEDS: polyethylene glycol 3350 17gm powd pack PO SCH (09:32)
[2023-05-14] MEDS: oxcarbazepine 150mg tablet PO SCH (09:33)
[2023-05-14] MEDS: bisacodyl 10mg suppository rectal RC SCH (09:33)
[2023-05-14] MEDS: [UNRECOGNIZED DRUG - OTHER] PO SCH (09:33)
[2023-05-14] MEDS: ferrous sulfate 325mg tablet PO SCH ×2 (09:34→13:00)
[2023-05-14] MEDS: multivitamins, therapeutics tablet PO SCH (09:34)
[2023-05-14] MEDS: azithromycin 250mg tablet PO SCH (09:34)
[2023-05-14] MEDS: lansoprazole 15mg solutab PO SCH (09:34)
[2023-05-14] MEDS: levoTHYROXINE 175mcg tablet PO SCH (09:34)
[2023-05-14] MEDS: calcium carbonate 500mg chew tablet PO SCH (09:34)
[2023-05-14] MEDS: docusate sod 100mg capsule PO SCH (09:35)
[2023-05-14 10:00] VITALS: BP 99/63; PULSE 100; RESP 18; TEMP 96.9; O2SAT 94
--- NOTE | 2023-05-14 12:17 | NUR ---
PRESSURE ULCER EDUCATION: DEFINITION: A pressure ulcer is an area of skin that breaks down when you stay in one position too long. The constant pressure against the skin reduces the blood flow to that area and the affected tissue dies. CAUSES: "Being bedridden or in a wheelchair "Fragile skin "Having a chronic condition, such as diabetes or vascular disease "Inability to move certain parts of your body without assistance "Older age "Incontinence of urine or stool SYMPTOMS: "A reddened area that DOES NOT turn white when pressed on - this can be the beginning of a pressure ulcer "A blister, deep sore or a crater - these can be advanced pressure ulcers FIRST AID: "Relieve the pressure on this area "Keep the area clean and dry "Call your primary doctor if you see any of the above symptoms "DO NOT massage the area "DO NOT use a donut shaped or ring shaped pillow- these actually interfere with the blood flow and cause complications PREVENTION: "Check for pressure ulcers everyday "Change position at least every two hours to relieve pressure "Use items that help relieve pressure- pillows, sheepskin, foam padding, and powders. "Keep skin clean and dry "Eat healthy well balanced meals "Exercise daily IF YOU SEE ANY OF THESE SYMPTOMS WHILE IN THE HOSPITAL - TELL YOUR NURSE IMMEDIATELY. IF YOU SEE ANY OF THESE SYMPTOMS WHILE AT HOME OR HAVE ANY QUESTIONS OR CONCERNS ABOUT PRESSURE ULCERS - CALL YOUR PRIMARY DOCTOR IMMEDIATELY. Addendum: 05/14/23 at 1218 by aSrah Dozier RN Amended: Links added.
[2023-05-14] MEDS ORDERED: LACT10SO7 PO (14:29)
[2023-05-14] MEDS ORDERED: METO-292 PO (14:29)
--- NOTE | 2023-05-14 15:00 | NUR ---
I have reviewed and agree with interventions, assessments, and documentation by Rena Salgaod LVN.
--- NOTE | 2023-05-14 16:44 | NUR ---
Patient dc home today to [facility]. packaging operator picked patient up and he is alert and appropriate for dc. dc instructions were explained and questions were answered. Patient was wheeled downstairs and in to private vehicle.
[2023-05-14] MEDS ORDERED: [UNRECOGNIZED DRUG - OTHER] PO SCH (20:00)
== END 2023-05-14 16:45 | disposition home or self-care (01) | DRG 388 ==
LOC: ER 08:43 → ED HOLD 13:54 → ORTHO 4S 19:17
PROVIDERS: ADMIT Family Medicine; ATTEND Family Medicine
PROC: 0D738ZZ Dilation of Lower Esophagus, Via Natural or Artificial Opening Endoscopic (ICD-10-PCS; principal; 2023-05-10)
PROC: 0D728ZZ Dilation of Middle Esophagus, Via Natural or Artificial Opening Endoscopic (ICD-10-PCS; 2023-05-10)
PROC: 0DB78ZX Excision of Stomach, Pylorus, Via Natural or Artificial Opening Endoscopic, Diagnostic (ICD-10-PCS; 2023-05-10)
PROC: 3E1H78Z Irrigation of Lower GI using Irrigating Substance, Via Natural or Artificial Opening (ICD-10-PCS; 2023-05-12)
PROC: BW211ZZ Computerized Tomography (CT Scan) of Abdomen and Pelvis using Low Osmolar Contrast (ICD-10-PCS; 2023-05-12)
DX: K56.41 Fecal impaction (principal); J69.0 Pneumonitis due to inhalation of food and vomit; N13.30 Unspecified hydronephrosis; K22.81 Esophageal polyp; Z66 Do not resuscitate; K22.2 Esophageal obstruction; J39.2 Other diseases of pharynx; Q90.9 Down syndrome, unspecified; E03.9 Hypothyroidism, unspecified; G40.909 Epilepsy, unspecified, not intractable, without status epilepticus; K29.70 Gastritis, unspecified, without bleeding; K44.9 Diaphragmatic hernia without obstruction or gangrene; Z88.0 Allergy status to penicillin; Z87.01 Personal history of pneumonia (recurrent); Z79.899 Other long term (current) drug therapy
CPT/HCPCS: 36415; 43239; 43249; 71045; 74018; 74177; 80053; 83690; 83735; 84443; 85025; 87081; 88305; 88313; 88342; 92508; 92616; 97116; 97161; 97530; 99152; 99153; 99291; A4620; A6213; C1726; G0378; J0456; J0696; J2060; J2250; J2405; J2765; J3010; J3490; J7030; Q9967

== ENCOUNTER 2023-05-17 22:11 | Emergency (ER) | payer MEDICARE, MEDICAID ==
[~2023-05-17] VITALS: Ht 157.5 cm; Wt 56.0 kg
[~2023-05-17 22:11] MED LIST changes: +ACET325T57 PO; +BISA-95 PO; +IBUP-1985 PO; +LACT10SO7 PO; -LEVO750T68 PO; +MAGN400O6 PO; -MELA1TAB28 PO; +MELA5CAP PO; +METO-292 PO; -POTA20TA34 PO; +[UNRECOGNIZED DRUG - CODE] PO; -[UNRECOGNIZED DRUG - CODE] PO
[2023-05-17 22:13] VITALS: TEMP 97.7
[2023-05-17] MEDS ORDERED: LIDOcaine/epinephrine/tetracaine TOPICAL sol 3 ML syringe TOP ONE (22:35)
[2023-05-17 22:37] VITALS: BP 108/63; PULSE 86; RESP 16; O2SAT 96
[2023-05-17] MEDS ORDERED: LIDOcaine 1% W/epiNEPHrine 1:100,000 20ml vial IJ ONE (23:25)
== END 2023-05-18 00:53 | disposition hospice, home (50) ==
LOC: ER 22:11
DX: S01.112A Laceration without foreign body of left eyelid and periocular area, initial encounter (principal); Z79.899 Other long term (current) drug therapy; Z88.0 Allergy status to penicillin; W19.XXXA Unspecified fall, initial encounter; Y93.89 Activity, other specified; Y92.89 Other specified places as the place of occurrence of the external cause; Y99.8 Other external cause status
CPT/HCPCS: 12011; 99284; J3490; A6449